=== PATIENT | female | born 1980 | race Caucasian/White ===

== ENCOUNTER 2024-01-02 10:29 | Day surgery (SDC) | payer MEDICARE, MEDICAID ==
[~2024-01-02 10:29] MED LIST: Sodium Chloride 0.9% 10 ML Syringe FLUSH PRN; Sodium Chloride 0.9% 2.5 ML Syringe FLUSH PRN; Sodium Chloride 0.9% 20 ML SDV IV PRN
[2024-01-02] MEDS ORDERED: Propofol 200 MG/20 ML SDV ONE ×2 (11:25→11:26)
[2024-01-02] MEDS ORDERED: Lidocaine 2% 5 ML SDV ONE (11:25)
[2024-01-02] MEDS: Lactated Ringers 1,000 ML IV SCH (11:27)
[2024-01-02 13:37] VITALS: BP 115/79; PULSE 55
== END 2024-01-02 12:45 | disposition home or self-care (01) ==
LOC: MW.SDS 10:29
PROVIDERS: ATTEND Surgery
DX: K52.9 Noninfective gastroenteritis and colitis, unspecified (principal); K62.89 Other specified diseases of anus and rectum; F41.9 Anxiety disorder, unspecified; I50.9 Heart failure, unspecified; F31.9 Bipolar disorder, unspecified; J44.9 Chronic obstructive pulmonary disease, unspecified; J45.30 Mild persistent asthma, uncomplicated; F17.290 Nicotine dependence, other tobacco product, uncomplicated; Z79.899 Other long term (current) drug therapy; Z88.0 Allergy status to penicillin
CPT/HCPCS: 45380; 81025; J2704; J7120; 00811; J3490